=== PATIENT | female | born 2000 | race Caucasian/White ===

== ENCOUNTER 2020-04-06 14:55 | Emergency (ER) | payer OTHER, SELFPAY ==
--- NOTE | 2020-04-06 15:05 | ED.FEMALEGU ---
HPI - Female Genitourinary General Chief complaint: Urogenital-Female Stated complaint: POS UTI Time Seen by Provider: 04/06/20 15:05 History of Present Illness HPI Narrative: Patient is a 20-year-old female who presents the urgent care with complaints of a possible UTI. Patient states that 2 weeks ago she started to have some lower back pains intermittently. States that today she had one episode of incontinence and has had urinary urgency. Patient states that she had typical symptoms with her last urinary tract infection and ended up having a double kidney infection. Patient denies of any fever, chills, nausea, vomiting, abdominal pain. Patient has not done anything for her symptoms [id number]. No other acute complaints. No acute distress noted. Patient read the plan of care. Related Data Home Medications Medication Instructions Recorded Confirmed levonorgestrel-ethinyl estrad 1 tablet PO DAILY 04/06/20 04/06/20 Allergies Allergy/AdvReac Type Severity Reaction Status Date / Time ciprofloxacin AdvReac Hives Verified 04/06/20 15:10 Review of Systems Review of Systems: Narrative: CONSTITUTIONAL: Denies fever, chills, or sweats. EYES: Denies visual changes, redness, or discharge. ENT: Denies rhinorrhea, congestion, sore throat, or otalgia. CARDIOVASCULAR: Denies chest pain, palpitations, or edema. RESPIRATORY: Denies cough or dyspnea. GASTROINTESTINAL: Denies abdominal pain, nausea, vomiting, or diarrhea. GENITOURINARY: Reports of urinary urgency and one episode of incontinence SKIN: Denies rash or itching. MUSCULOSKELETAL: Reports of mild intermittent back pain NEUROLOGIC: Denies headache, numbness, or weakness. All other systems reviewed are negative, except as documented in HPI. PMFSH Comments At the time of my signature, I reviewed and agree with the nursing past medical, surgical, social, and family history. There is no relevant family history pertinent to the patient complaint. Exam Narrative: Exam Narrative: GENERAL: This is a well-nourished, well-developed patient, in no apparent distress. HEAD: normocephalic, atraumatic. EYES: PERRL. Sclera clear/white. Vision is grossly intact. EARS: External ears normal NOSE: External nose normal with no obvious nasal discharge, nares without redness, no rhinorrhea. THROAT: Mucous membranes moist NECK: Neck supple GASTROINTESTINAL: Abdomen soft, non-tender, nondistended. SKIN: warm, intact with no suspicious lesions or rash, good texture and turgor. NEURO: awake, alert, and oriented to person, place and time. There were no obvious focal neurologic abnormalities. EXTREMITIES: No clubbing, cyanosis, or edema. BACK: Negative bilateral CVA tenderness Course Vital Signs Vital signs: Vital Signs Temperature 98.1 F 04/06/20 15:06 Pulse Rate 102 H 04/06/20 15:06 Respiratory Rate 04/06/20 15:06 Blood Pressure 138/63 04/06/20 15:06 Pulse Oximetry 100 04/06/20 15:06 Temperature 98.1 F 04/06/20 15:06 Pulse Rate 102 H 04/06/20 15:06 Respiratory Rate 04/06/20 15:06 Blood Pressure 138/63 04/06/20 15:06 Pulse Oximetry 100 04/06/20 15:06 Reviewed MDM - Female Genitourinary MDM Narrative Medical decision making narrative: Reviewed lab results with the patient. She is aware that urine analysis is indicative of a urinary tract infection. Advised the patient to complete oral antibiotic regimen as prescribed. Make sure to eat and drink with the medication. Increase water intake and avoid sugary and caffeinated drinks. Be sure to wear cotton underwear and do not sit in a wet swimsuit for long periods of time. Do not soak in bath water. If you develop any increase in symptoms associated with abdominal pain, nausea, vomiting, fever, low back pain?go to the emergency room. Follow-up with your PCP within 2 to 5 days if her worsening symptoms or failure to improve. Differential Diagnosis Differential diagnosis: Likely urinary tract infectio
[2020-04-06 15:06] VITALS: BP 138/63; PULSE 102; RESP 20; TEMP 36.7; O2SAT 100
== END 2020-04-06 15:36 | disposition home or self-care (01) ==
PROVIDERS: Emergency Provider Nurse Practitioner Family
DX: N39.0 Urinary tract infection, site not specified (principal)
CPT/HCPCS: 81003; 87077; 87086; 87088; 87186; 99203; G0463